=== PATIENT | female | born 1950 ===

== ENCOUNTER 2017-08-13 10:39 | Outpatient (CLI) | payer OTHER ==
[~2017-08-13 10:39] MED LIST: MEDROL4 MG PO; NEURONTIN600 MG PO
== END 2017-08-13 10:49 | disposition home or self-care (01) ==
LOC: RAD 10:39
DX: J45.901 Unspecified asthma with (acute) exacerbation (principal)

== ENCOUNTER → 2021-02-07 | Outpatient (CLI) | payer OTHER ==
[~2021-02-07] MED LIST changes: +BACLOFEN10 MG PO
== END | disposition home or self-care (01) ==
LOC: RAD 09:55
PROVIDERS: ATTEND Internal Medicine Cardiovascular Disease
DX: M17.9 Osteoarthritis of knee, unspecified (principal)